=== PATIENT | female | born 1960 | race African-American/Black ===

== ENCOUNTER 2021-04-04 16:50 | Emergency (ER) | payer OTHER, SELFPAY ==
[2021-04-04 21:57] VITALS: BP 134/78; PULSE 60; RESP 16; TEMP 36.9; O2SAT 97; BMI 36.0
[2021-04-04 22:12] VITALS: BP 142/86; PULSE 60; RESP 16; TEMP 35.8; O2SAT 98
--- NOTE | 2021-04-04 23:21 | ED.ARRPALP ---
HPI - Arrhythmia/Palpitations General Chief Complaint: Arrhythmia/Palpitations Stated Complaint: Palpitations Time Seen by Provider: 04/04/21 23:20 Source: patient Mode of arrival: ambulatory History of Present Illness HPI narrative: 61-year-old female with history of hypertension presents with onset of palpitations as well as diaphragmatic distribution pain that started last night after eating a dish without jalapenos. This was not associated with any fever, chills, nausea, diaphoresis, dizziness, or headache. Patient states that throughout the day this his continue to resolve with drinking plenty of water, but she notes that she has been belching more than usual. Otherwise patient has no acute complaints. Related Data Allergies Allergy/AdvReac Type Severity Reaction Status Date / Time lisinopril Allergy Unknown Verified 04/04/21 22:04 Review of Systems Review of Systems: Pertinent positives and negatives as stated in HPI and 10 point review of systems is otherwise negative. [facility] Past Medical History Source: nursing notes reviewed Medical History Hypertension Surgical History History of hysterectomy Social History Social History Advance Directives: No Patient : No Physical Exam Vital Signs: Vital Signs: Last Vital Signs Temp 96.5 F L 04/04/21 22:12 Pulse 60 04/04/21 22:12 Resp 16 04/04/21 22:12 BP 142/86 H 04/04/21 22:12 Pulse Ox 98 04/04/21 22:12 Body Mass Index 36.0 VITAL SIGNS: Reviewed. GENERAL: Well developed, well nourished, in no acute distress. HEAD: Normocephalic/atraumatic EYES: PERRLA, EOMI OROPHARYNX: no oral lesions noted, posterior pharynx clear LUNGS: Normal breath sounds. No adventitious sounds or accessory muscle use. SpO2<98> CARDIOVASCULAR: Regular rate and rhythm without noted murmurs ABDOMEN: Soft, non-tender, non-distended with bowel sounds. NEUROLOGIC: Alert and oriented x 4. Course Course Course Narrative: 61-year-old female with history and clinical presentation of palpitations, will rule out infection, anemia, arrhythmia. HEART Score:3 (low risk) Review of all investigations negative for acute findings in although the high sensitivity troponin was detectable it is not elevated given age gender stratification as well as patient having no chest pain, EKG does not show changes consistent with acute ischemia as well as patient having a heart score that is low risk. All results were discussed with her bedside and she knows to or follow-up with her primary care provider in the morning to further discuss possible referral to cardiology. MDM - Arrhythmia/Palpitations Lab Data Result diagrams: 04/04/21 23:35 04/04/21 23:35 Labs: Lab Results 04/04/21 04/04/21 04/04/21 Range/Units 23:35 23:35 23:35 WBC 5.9 (4.8-10.8) X10*3/uL RBC 5.14 (4.20-5.50) X10*6/uL Hgb 14.4 (12.0-16.0) g/dl Hct 43.2 (37-47) % MCV 84.0 (80-98) fL MCH 28.0 (27.0-33.0) pg MCHC 33.3 (31.0-35.0) g/dl RDW 13.9 (11.0-16.0) % Plt Count 386 (160-400) X10*3/uL MPV 10.0 (9.4-12.3) fL Immature Gran % (Auto) 0.2 (0.0-0.4) % Neut % (Auto) 37.3 L (45-73) % Lymph % (Auto) 49.9 H (20-40) % [place] % (Auto) 8.5 (2-11) % Eos % (Auto) 2.9 (0-4) % Baso % (Auto) 1.2 (0-2) % Lymph # (Auto) 2.9 (1.2-4.9) X10*3/uL [place] # (Auto) 0.5 (0.1-1.2) X10*3/uL Eos # (Auto) 0.2 (0.0-0.4) X10*3/uL Baso # (Auto) 0.1 (0.0-0.2) X10*3/uL Abs Immat Gran (auto) 0.01 (0.00-0.03) X10*3/uL Absolute Neuts (auto) 2.2 (2.0-8.3) X10*3/uL Absolute Nucleated RBC 0.000 (0.0-0.012) X10*3/uL Nucleated RBC % (auto) 0.0 (0.0-0.2) /100WBC Sodium 141 (135-145) mmol/L Potassium 3.5 (3.3-5.1) mmol/L Chloride 105 (96-108) mmol/L Carbon Dioxide 28 (22-29) mmol/L Anion Gap 12 (12-20) BUN 13 (9-16) mg/dL Creatinine 0.77 (0.5-1.4) mg/dL Estim Creat Clear Calc 107.6 Estimated GFR > 60 Random Glucose 88 (60-115) mg/dL Calcium 9.9 (8.4-10.2) mg/dL Total Bilirubin 0.4 (0.0-1.0) mg/dL AST 16 (5-31) U/L ALT 20 (0-31) U/L Alkaline Phosphatase 72 (39-117) U/L Troponin I High Sens 14.3 (<3.5-17.0) ng/L Total Protein 7.1 (6.5-8.0) g/dL Albumin 4.3 (3.5-5.0) g/dL ECG Data Attestation: I personally reviewed and interpreted this ECG as follows: Prior ECG tracings: not available for review Interpretation: Sinus bradycardia, HR-59, no STEMI, QRS/QTC are within normal limits. Discharge Plan Discharge Clinical Impression: Palpitations Patient Disposition: Home, Self-Care Instructions: Heart Palpitations (ED) Additional Instructions: 1. Resume all home medications as prescribed. 2. Follow-up with your primary care provider in the morning to schedule an appointment for re-evaluation and further discussion regarding possible cardiology referral Return to the ER for acute worsening of symptoms. Referrals: Carley Mckeon MD [Primary Care Provider] - 2 days
[2021-04-04 23:39] LABS: MANUAL DIFF FLAG NO
[2021-04-04 23:40] LABS: Basophils Absolute Auto 0.1 X10*3/uL (0.0-0.2); Basophils Percent Auto 1.2 % (0-2); Eosinophils Absolute Auto 0.2 X10*3/uL (0.0-0.4); Eosinophils Percent Auto 2.9 % (0-4); Hematocrit 43.2 % (37-47); Hemoglobin 14.4 g/dl (12.0-16.0); Imm Gran Abs Auto 0.01 X10*3/uL (0.00-0.03); Imm Gran Pct Auto 0.2 % (0.0-0.4); Lymphocytes Absolute Auto 2.9 X10*3/uL (1.2-4.9); Lymphocytes Percent Auto 49.9 % (20-40); Mean Corpuscular HGB Conc 33.3 g/dl (31.0-35.0); Monocytes Absolute Auto 0.5 X10*3/uL (0.1-1.2); Monocytes Percent Auto 8.5 % (2-11); Neutrophils Absolute Auto 2.2 X10*3/uL (2.0-8.3); Neutrophils Percent Auto 37.3 % (45-73); Platelet Count 386 X10*3/uL (160-400); Red Blood Count 5.14 X10*6/uL (4.20-5.50); Red Cell Distribution Width 13.9 % (11.0-16.0); White Blood Count 5.9 X10*3/uL (4.8-10.8)
[2021-04-04 23:58] LABS: Troponin-I High Sensitivity 14.3 ng/L (<3.5-17.0)
[2021-04-04 23:59] LABS: Alanine Aminotransferase 20 U/L (0-31); Albumin Level 4.3 g/dL (3.5-5.0); Alkaline Phosphatase 72 U/L (39-117); Anion Gap 12 (12-20); Aspartate Amino Transferase 16 U/L (5-31); Bilirubin Total 0.4 mg/dL (0.0-1.0); Blood Urea Nitrogen 13 mg/dL (9-16); Calcium 9.9 mg/dL (8.4-10.2); Carbon Dioxide 28 mmol/L (22-29); Chloride 105 mmol/L (96-108); Creatinine Clr Calc Pharmacy 107.6; Estimated Glomerular Filt Rate > 60; Glucose Random 88 mg/dL (60-115); Potassium 3.5 mmol/L (3.3-5.1); Sodium 141 mmol/L (135-145); Total Protein 7.1 g/dL (6.5-8.0)
--- NOTE | 2021-04-05 07:48 | ECG_ITS ---
Test Reason : PALPITATONS Blood Pressure : / mmHG Vent. Rate : 059 BPM Atrial Rate : 059 BPM P-R Int : 202 ms QRS Dur : 090 ms QT Int : 430 ms P-R-T Axes : 050 -26 033 degrees QTc Int : 425 ms Sinus bradycardia Moderate voltage criteria for LVH, may be normal variant Borderline ECG No previous ECGs available Referred By: Isidra Damon Electronically Signed By:DENYS GLEASON
== END 2021-04-05 00:31 | disposition home or self-care (01) ==
PROVIDERS: Emergency Provider Student in an Organized Health Care Education/Training Program; PCP Internal Medicine
DX: R00.2 Palpitations (principal); Z79.899 Other long term (current) drug therapy
CPT/HCPCS: 36415; 80053; 84484; 85025; 93005; 99283